=== PATIENT | male | born 1950 | race Hispanic/Latino ===

== ENCOUNTER → 2018-05-19 | Outpatient (CLI) | payer MEDICARE ==
[~2018-05-19] MED LIST: FLAGYL250 MG PO; LEVAQUIN500 MG PO; OMEGA-31000 MG PO; PRAVASTATIN SOD20 MG PO; ULTRAM50 MG PO; VITAMIN E400 UNI2 PO
--- NOTE | 2018-05-19 13:26 | Diagnostic Imaging Report ---
EXAMINATION: CHEST 2 VIEWS INDICATION: Shortness of breath COMPARISON: None FINDINGS: TUBES and LINES: Sternal wires. LUNGS: Lungs are well inflated. Chronic appearing changes in the lungs with what appears to be minimal scarring/atelectasis at the lung bases and in the left midlung. There is no evidence of pneumonia or pulmonary edema. PLEURA: Small right pleural effusion. No pneumothorax. HEART AND MEDIASTINUM: The cardiomediastinal silhouette is unremarkable. BONES AND SOFT TISSUES: No acute osseous lesion. Soft tissues are unremarkable. UPPER ABDOMEN: No free air under the diaphragm. IMPRESSION: Chronic appearing changes in the lungs with what appears to be minimal scarring/atelectasis at the lung bases and in the left midlung. Small right pleural effusion. Signed by: Dr. Mark Choi M.D. on 05/19/2018 1:23 PM
== END ==
LOC: RAD 12:14
DX: R06.02 Shortness of breath (principal)
CPT/HCPCS: 71046

== ENCOUNTER 2022-05-17 13:37 | Emergency (ER) | payer MEDICARE, OTHER ==
[~2022-05-17] VITALS: Ht 167.6 cm; Wt 84.9 kg
[2022-05-17] MEDS ORDERED: IBUPROFEN 600 MG TAB PO STA (15:12)
[2022-05-17] MEDS ORDERED: ACETAMINOPHEN 325 MG TAB PO ONE (15:15)
[2022-05-17] MEDS ORDERED: PRAVASTATIN SOD40 MG (15:18)
[2022-05-17] MEDS ORDERED: MULTI-VITAMIN1 EACH PO (15:18)
[2022-05-17] MEDS ORDERED: LOSARTAN POTASS25 MG PO (15:18)
[2022-05-17] MEDS ORDERED: CLOPIDOGREL75 MG PO (15:18)
[2022-05-17] MEDS ORDERED: PANTOPRAZOLE SO40 MG PO (15:18)
[2022-05-17] MEDS ORDERED: METOPROLOL SUCC25 MG PO (15:18)
[2022-05-17] MEDS ORDERED: ACETAMINOPHEN 325 MG TAB ONE (15:23)
[2022-05-17] MEDS ORDERED: IBUPROFEN 600 MG TAB ONE (15:23)
[2022-05-17] MEDS ORDERED: ZITHROMAX250 MG PO (16:58)
== END 2022-05-17 17:20 | disposition home or self-care (01) ==
LOC: FSED 14:21
DX: R50.9 Fever, unspecified (principal); J06.9 Acute upper respiratory infection, unspecified; R05.9 Cough, unspecified; I10 Essential (primary) hypertension; E78.5 Hyperlipidemia, unspecified; I25.10 Atherosclerotic heart disease of native coronary artery without angina pectoris; Z20.822 Contact with and (suspected) exposure to COVID-19
CPT/HCPCS: 71046; 81003; 83518; 87400; 99283; U0002

== ENCOUNTER 2024-11-03 12:44 | Emergency (ER) | payer MEDICARE ==
[~2024-11-03] VITALS: Ht 167.6 cm; Wt 86.4 kg
[~2024-11-03 12:44] MED LIST changes: +CLOPIDOGREL75 MG PO; +LOSARTAN POTASS25 MG PO; +METOPROLOL SUCC25 MG PO; +MULTI-VITAMIN1 EACH PO; +PANTOPRAZOLE SO40 MG PO; +PRAVASTATIN SOD40 MG; +ZITHROMAX250 MG PO
[2024-11-03] MEDS ORDERED: CEPHALEXIN500 MG PO (14:24)
[2024-11-03 14:32] VITALS: PULSE 56; RESP 17; TEMP 98.5; O2SAT 97
[2024-11-03] MEDS ORDERED: LIDOCAINE HCL 2% LOCAL 20 ML VIAL ONE (14:55)
== END 2024-11-03 14:33 | disposition home or self-care (01) ==
LOC: FSED 13:02
DX: S61.011A Laceration without foreign body of right thumb without damage to nail, initial encounter (principal); S61.210A Laceration without foreign body of right index finger without damage to nail, initial encounter; S61.212A Laceration without foreign body of right middle finger without damage to nail, initial encounter; W45.8XXA Other foreign body or object entering through skin, initial encounter; Y92.89 Other specified places as the place of occurrence of the external cause; I10 Essential (primary) hypertension; E78.5 Hyperlipidemia, unspecified; I25.10 Atherosclerotic heart disease of native coronary artery without angina pectoris; K21.9 Gastro-esophageal reflux disease without esophagitis
CPT/HCPCS: 12005; 99284; J2003